=== PATIENT | female | born 1995 | race Two or more races ===

== ENCOUNTER 2022-11-17 21:41 | Emergency (ER) | payer OTHER ==
[~2022-11-17] VITALS: Ht 162.6 cm; Wt 70.8 kg
== END 2022-11-17 23:41 | disposition home or self-care (01) ==
LOC: ER 21:41
DX: N93.8 Other specified abnormal uterine and vaginal bleeding (principal)

== ENCOUNTER 2025-05-26 05:54 | Emergency (ER) | payer OTHER ==
[~2025-05-26] VITALS: Ht 162.6 cm; Wt 72.1 kg
[2025-05-26] MEDS ORDERED: METOCLOPRAMIDE HCL 5 MG/ML VIAL IM ONE (08:00)
[2025-05-26] MEDS ORDERED: HYOSCYAMINE SULFATE 0.125 MG TAB.SUBL SL ONE (08:00)
[2025-05-26] MEDS ORDERED: PANTOPRAZOLE SODIUM 40 MG TABLET.DR PO ONE (08:00)
[2025-05-26] MEDS ORDERED: METOCLOPRAMIDE HCL 5 MG/ML VIAL ONE (08:20)
[2025-05-26] MEDS ORDERED: HYOSCYAMINE SULFATE 0.125 MG TAB.SUBL ONE (08:20)
[2025-05-26 08:49] LABS: BASO % 0.4 % (0.1-1.2); EOS # 0.20 (0.04-0.54); EOS % 2.1 % (0.7-7.0); LYMPH # 2.55 (1.18-3.74); LYMPH % 27.3 % (19.3-53.1); MEAN PLATELET VOLUME 10.70 fl (9.4-12.4); MONO # 0.54 (0.24-0.82); MONO % 5.8 % (4.7-12.5); NEUT # 5.99 (1.56-6.13); NEUT % 64.2 % (34.0-71.1); RED CELL DISTRIBUTION WIDTH 12.9 % (11.6-14.4)
[2025-05-26 09:30] LABS: ALT/SGPT 23 U/L (12-78); AST/SGOT 22 U/L (15-37); BILIRUBIN TOTAL 0.35 mg/dL (0.3-1.2); BUN CREA RATIO 12 (7.0-25.0); CREATININE SERUM 0.84 mg/dL (0.55-1.02); GFR 80.16; GLOBULINA 4.3 G/DL (2.4-3.5); GLUCOSE FASTING 88 mg/dL (65-100); HCG QUANTITATIVE < 1 mUI/mL (1-3); OSMOLALITY SERUM 274 MOSM/KG (275-295)
[2025-05-26 09:30] LABS: URINE APPEARANCE Clear; URINE BILIRRUBIN Negative (NEGATIVE); URINE BLOOD Negative; URINE COLOR Yellow; URINE GLUCOSE Negative (NEGATIVE); URINE KETONE Trace (NEGATIVE); URINE LEUKOCYTE Negative; URINE NITRATE Negative; URINE PROTEIN Negative (NEGATIVE); URINE UROBILINOGEN 0.2 E.U./dl
[2025-05-26 09:32] LABS: URINE BACTERIA 1340.3 uL (0.0-1933); URINE EPITHELIAL CELLS 31.9 uL (0.0-38.8); URINE WBC 7.3 uL (0.0-23.2)
[2025-05-26 09:36] LABS: URINE CAST 0.00 uL (0.0-1.40); URINE RBC 1.7 uL (0.0-20.8)
== END 2025-05-26 11:05 | disposition home or self-care (01) ==
LOC: ER 05:54
PROVIDERS: General Practice
DX: R10.13 Epigastric pain (principal)